=== PATIENT | female | born 1935 | race Caucasian/White ===

== ENCOUNTER → 2018-10-29 | Outpatient (CLI) | payer MEDICARE, BC ==
[~2018-10-29] MED LIST: ALEN10 PO; ENAL20 PO; HYDCHL25 PO; OMEP20ER PO; PRAV40 PO
== END | disposition home or self-care (01) ==
LOC: PLD 14:30 → LAB SHORT 14:30
DX: D48.5 Neoplasm of uncertain behavior of skin (principal)
CPT/HCPCS: 88305

== ENCOUNTER → 2021-04-20 | Outpatient (CLI) | payer MEDICARE, BC ==
[2021-04-20 12:59] LABS: Appearance, Urine Hazy (Clear); Bilirubin, Urine Neg (Neg); Blood, Urine Neg (Neg); Color, Urine Yellow (P-Yellow); Glucose Qualitative, Urine Neg (Neg); Ketones, Urine Neg (Neg); Leukocyte Esterase, Urine 3+ (Neg); Nitrite, Urine Neg (Neg); Protein, Urine Neg (Neg); Urobilinogen, Urine NORM (Normal)
[2021-04-20 13:08] LABS: Bacteria Many /hpf; Squamous Epithelial Cells Mod /hpf (Few); White Blood Cells, Urine 50-100 /hpf (0-5)
[2021-04-20 13:09] LABS: Renal Epithelial Few /hpf (0-Rare)
== END | disposition home or self-care (01) ==
LOC: LAB 08:00 → LAB SHORT 08:00 → EDSTATUS 04-19 06:45 → LAB FUT 04-19 06:45
PROVIDERS: Nurse Practitioner Women's Health
DX: N39.0 Urinary tract infection, site not specified (principal); Z87.440 Personal history of urinary (tract) infections
CPT/HCPCS: 81001; 87077; 87086; 87186

== ENCOUNTER 2023-04-19 10:22 | Day surgery (SDC) | payer MEDICARE, BC ==
[~2023-04-19] VITALS: Ht 154.9 cm; Wt 68.2 kg
[~2023-04-19 10:22] MED LIST changes: +ESTRADIOL42.5 GM; +Enalapril Malea20 MG; +METOPROLOL SUCC25 MG; +ZOLP5 PO
[2023-04-19] MEDS ORDERED: Calcium Carbon500 MG PO (11:04)
--- NOTE | 2023-04-19 11:06 | NUR ---
04/19/23 1106 Ana M Lee AT 1102 PLEDGET AT 1103
[2023-04-19 12:16] VITALS: BP 192/83
--- NOTE | 2023-04-19 14:59 | NUR ---
04/19/23 1453 ROBERTO FORD PT BP ELEVATED IN PREOP WELL POST OP. PT VERY ANXIOUS. PT STATED THAT SHE WILL TAKE HER BP AT HOME TO CHECK IT. RN INSTRUCTED PT TO CONTACT PCP IF BP IS ELEVATED. PT TOOK HER METOPROLOL THIS AM
== END 2023-04-19 12:40 | disposition home or self-care (01) ==
LOC: ORSCSDS 10:22
PROVIDERS: Ophthalmology
PROC: 08RJ3JZ Replacement of Right Lens with Synthetic Substitute, Percutaneous Approach (ICD-10-PCS; principal; 2023-04-19 12:00)
DX: H25.13 Age-related nuclear cataract, bilateral (principal); H52.201 Unspecified astigmatism, right eye; I10 Essential (primary) hypertension; K21.9 Gastro-esophageal reflux disease without esophagitis; Z79.899 Other long term (current) drug therapy
CPT/HCPCS: J2250; J3010; J3301; J7040; V2632

== ENCOUNTER 2023-04-26 12:35 | Day surgery (SDC) | payer MEDICARE, BC ==
[~2023-04-26] VITALS: Ht 154.9 cm; Wt 67.8 kg
[~2023-04-26 12:35] MED LIST changes: +Calcium Carbon500 MG PO
--- NOTE | 2023-04-26 13:08 | NUR ---
04/26/23 1308 Mayra Wayne TETRACAINE TO LEFT EYE AT 1306 PLEDGET TO LEFT EYE AT 1308 BY [email or web address]
--- NOTE | 2023-04-26 14:17 | NUR ---
04/26/23 1417 Peg Coronado MOXI
[2023-04-26 14:37] VITALS: BP 194/91
== END 2023-04-26 14:58 | disposition home or self-care (01) ==
LOC: ORSCSDS 12:35
PROVIDERS: Ophthalmology
PROC: 08RK3JZ Replacement of Left Lens with Synthetic Substitute, Percutaneous Approach (ICD-10-PCS; principal; 2023-04-26 14:00)
DX: H25.12 Age-related nuclear cataract, left eye (principal); H52.202 Unspecified astigmatism, left eye; Z96.1 Presence of intraocular lens; I12.9 Hypertensive chronic kidney disease with stage 1 through stage 4 chronic kidney disease, or unspecified chronic kidney disease; N18.9 Chronic kidney disease, unspecified; K21.9 Gastro-esophageal reflux disease without esophagitis; Z79.899 Other long term (current) drug therapy
CPT/HCPCS: J2250; J3301; J7040; V2632

== ENCOUNTER → 2024-10-13 | Outpatient (CLI) | payer MEDICARE, BC ==
[2024-10-13 13:46] LABS: C DIFFICILE DNA NEGATIVE (Negative)
== END | disposition home or self-care (01) ==
LOC: LAB 09:00 → LAB SHORT 09:00
PROVIDERS: Legal Medicine
DX: R19.4 Change in bowel habit (principal)
CPT/HCPCS: 87015; 87045; 87046; 87205; 87493; 87899

== ENCOUNTER → 2024-10-16 | Outpatient (CLI) | payer MEDICARE, BC ==
[2024-10-24 11:51] LABS: OVA AND PARASITE,FECAL INTERP Negative (Negative)
== END | disposition home or self-care (01) ==
LOC: LAB 09:03 → LAB SHORT 09:03
PROVIDERS: Legal Medicine
DX: R19.4 Change in bowel habit (principal)
CPT/HCPCS: 87177; 87209

== ENCOUNTER 2025-05-28 12:29 | Inpatient (IN) | payer MEDICARE, BC ==
[~2025-05-28] VITALS: Ht 162.6 cm; Wt 74.8 kg
[~2025-05-28 12:29] MED LIST changes: -METOPROLOL SUCC25 MG; +METOPROLOL SUCC25 MG PO
[2025-05-28 13:53] LABS: BASOPHILS ABSOLUTE AUTO 0.05 K/mm3 (0.00-0.23); BASOPHILS PERCENT AUTO 1 % (0-2); EOSINOPHILS ABSOLUTE AUTO 0.14 K/mm3 (0.00-0.68); EOSINOPHILS PERCENT AUTO 2 % (0-6); Hematocrit 40.5 % (33.0-51.0); Hemoglobin 13.3 g/dL (11.5-16.0); IMMATURE GRAN ABSOLUTE AUTO 0.01 K/mm3 (0.00-0.10); IMMATURE GRAN PERCENT AUTO 0 % (0-1); LYMPHOCYTES ABSOLUTE AUTO 1.92 K/mm3 (0.84-5.20); LYMPHOCYTES PERCENT AUTO 30 % (21-46); MONOCYTES ABSOLUTE AUTO 0.61 K/mm3 (0.16-1.47); MONOCYTES PERCENT AUTO 10 % (4-13); Mean Corpuscular HGB Conc 32.8 g/dL (31.5-36.5); Mean Corpuscular Volume 90 fL (80-100); NEUTROPHILS ABSOLUTE AUTO 3.64 K/mm3 (1.96-9.15); NEUTROPHILS PERCENT AUTO 57 % (41-73); NRBC ABSOLUTE 0.00 K/mm3 (0.00-0.02); NRBC Auto 0.0 /100 WBC (0.0-0.2); Platelet Count 241 K/mm3 (150-400); RDW Coefficient Variation 14.2 % (11.7-14.2); RDW Standard Deviation 46.6 fL (35.1-46.3)
[2025-05-28 14:03] LABS: Source, Urine Clean Catch
[2025-05-28 14:04] LABS: Alanine Aminotransfer (ALT/SGP 21.0 U/L (12-78); Albumin, Blood 3.8 g/dL (3.4-5.0); Albumin/Globulin Ratio 0.9 (0.8-1.8); Anion Gap 9.0 mmol/L (3-11); Aspartate Aminotrans (AST/SGOT 25.0 U/L (12-37); Bilirubin, Total 0.5 mg/dL (0.1-1.0); Blood Urea Nitrogen 26.0 mg/dL (8-24); CO2, Blood 25.0 mmol/L (21-32); Calcium, Blood 10.7 mg/dL (8.5-10.1); Chloride, Blood 107.0 mmol/L (98-108); Creatinine, Blood 1.05 mg/dL (0.40-1.00); Globulin, Blood 4.1 g/dL (2.2-4.0); Glucose, Blood 105.0 mg/dL (70-99); Potassium, Blood 4.3 mmol/L (3.5-5.5); Sodium, Blood 137.0 mmol/L (136-145); Total Protein, Blood 7.9 g/dL (6.4-8.2)
[2025-05-28 14:27] LABS: Bilirubin, Urine Neg (Neg); Color, Urine Yellow (P-Yellow); Glucose Qualitative, Urine Neg (Neg); Ketones, Urine Neg (Neg); Leukocyte Esterase, Urine Neg (Neg); Protein, Urine 1+ (Neg); Specific Gravity, Urine 1.010 (1.003-1.022); Urobilinogen, Urine NORM (Normal)
[2025-05-28 14:43] LABS: Red Blood Cells, Urine 0-2 /hpf (0-2); White Blood Cells, Urine 0-2 /hpf (0-5)
[2025-05-28] MEDS ORDERED: FLU VACC TS2025(65UP)/MF59C/PF 45 MCG/0.5 ML SYRINGE IM SCH (17:50)
[2025-05-28] MEDS ORDERED: Ondansetron HCl 2 MG / ML 2ML Vial IV PRN (17:50)
[2025-05-28] MEDS ORDERED: Labetalol HCL 5 MG/ML 4ML Injection (Single Dose) IV PRN (17:50)
[2025-05-28] MEDS ORDERED: NS 1,000 ML IV SCH (18:00)
[2025-05-28 18:47] VITALS: BP 206/83
[2025-05-28 23:39] VITALS: BP 219/60
[2025-05-28 23:45] VITALS: BP 220/75
--- NOTE | 2025-05-29 00:03 | NUR ---
CALL PLACED TO PROVIDER REGARDING BP, PULSE AND PT FEELING DIZZY. STATED HE WILL REVIEW CHART AND PUT IN ORDERS NEEDED.
[2025-05-29] MEDS ORDERED: HydrALAZINE HCl 20 MG / ML 1ML Vial IV PRN (00:15)
[2025-05-29] MEDS ORDERED: Labetalol HCL 5 MG/ML 4ML Injection (Single Dose) IV PRN (00:15)
[2025-05-29 00:40] VITALS: BP 212/74
[2025-05-29 01:30] VITALS: BP 178/65
--- NOTE | 2025-05-29 03:13 | NUR ---
SHIFT SUMMARY: PT TO HAVE AN MRI IN THE MORNING. PT IS HAVING SLIGHTLY SLURRED SPEECH THAT WAX AND WANES. DAUGHTER AT BEDSIDE. PT HAS A BAG IF FLUID RUNNING AT 125 MLS AND HR. PT IS NPO FOR SWALLOWING PRECAUTIONS AND DUE TO HAVING A HARD TIME SWALLOWING PILLS IN THE ED. TELLY IN PLACE AND PT IS SINUS RADHA. PT IS ON A PUREWIC DUE TO BEING VERY DIZZY WHEN GETTING UP OUT OF BED.
[2025-05-29 04:43] LABS: Hematocrit 36.5 % (33.0-51.0); Hemoglobin 12.2 g/dL (11.5-16.0); Mean Corpuscular HGB Conc 33.4 g/dL (31.5-36.5); Mean Corpuscular Volume 87 fL (80-100); NRBC ABSOLUTE 0.00 K/mm3 (0.00-0.02); NRBC Auto 0.0 /100 WBC (0.0-0.2); Platelet Count 233 K/mm3 (150-400); RDW Coefficient Variation 13.9 % (11.7-14.2); RDW Standard Deviation 44.3 fL (35.1-46.3)
[2025-05-29 05:04] VITALS: BP 148/59
[2025-05-29 05:14] LABS: Anion Gap 11.0 mmol/L (3-11); Blood Urea Nitrogen 20.0 mg/dL (8-24); CO2, Blood 21.0 mmol/L (21-32); Calcium, Blood 9.4 mg/dL (8.5-10.1); Chloride, Blood 108.0 mmol/L (98-108); Creatinine, Blood 0.84 mg/dL (0.40-1.00); Glucose, Blood 107.0 mg/dL (70-99); Potassium, Blood 3.2 mmol/L (3.5-5.5); Sodium, Blood 137.0 mmol/L (136-145)
[2025-05-29 07:04] VITALS: BP 137/73
--- NOTE | 2025-05-29 08:18 | NUR ---
PALLIATIVE CARE NOTE: CONSULT RECIEVED FOR AD/POLST. NO POLST FOUND ON FILE OR THROUGH [facility]. REVIEWED MEDICAL RECORD. PT IS CONFUSED AT THIS TIME AND UNABLE TO MAKE DECISIONS. PT IS FULL CODE. WILL PLACE POLST OUTSIDE ROOM FOR MD TO COMPLETE.
[2025-05-29] MEDS ORDERED: Enoxaparin 40 MG/0.4 ML SYR SC SCH (09:00)
--- NOTE | 2025-05-29 09:32 | NUR ---
DISCUSSED CASE WITH CARE COORDINATION. 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 SHE IS STABLE AT THIS TIME. SHE IS PENDING A SWALLOW EVALUATION. PER CC NO NEEDS FROM PC AT THIS TIME, WILL REMAIN AVALIABLE IF NEED ARISES.
--- NOTE | 2025-05-29 12:04 | NUR ---
PALLIATIVE CARE VISIT: CONSULT RECEIVED FOR AD/POLST. REVIEWED MEDICAL RECORD. NO AD/POLST ON FILE. PO POLST WITH [facility]. MET WITH PT IN HER ROOM. SEVERAL FAMILY MEMBERS PRESENT INCLUDING SPOUSE AND DAUGHTER SUHA. PT IS AWAKE, ANSWERS QUESTIONS APPROPRIATELY BUT DOES ALSO HAVE APHASIA. SHE IS AGREEABLE TO DISCUSSION WITH FAMILY MEMBERS PRESENT. EDUCATED PT AND FAMILY ON CODE STATUS AND POLST, DNR VS CPR MEASURES. ALSO EDUCATED ON ADVANCE DIRECTIVE. THEY ARE INTERESTED IN COMPLETING ONE BUT WANT TIME TO DISCUSS A FAMILY. PROVIDED COPIES AND GAVE CONTACT INFORMATION AND INFORMED THEM IF THEY HAVE QUESTIONS OR NEED ASSISTANCE IN COMPLETING THEY CAN CONTACT ME.
--- NOTE | 2025-05-29 12:50 | NUR ---
ASSUMED CARE OF PT. A/O VSS PT IS WELL AWARE OF ON GOING NURO ISSUES WITH POSSIBLE STROKE. AWAITING MRI THIS MORNING. PT/ OT WORKED WITH PT TODAY WELL AND RECOMMEND SNF, FAMILY CLAIM THAT THEY HAVE HELP AT HOME. SPEECH EVAL IN PROGRESS, PT ABLE TO SWALLOW AND ORDERS FOR SUPERVISED FEEDING EXPLAINED TO PT AND FAMILY. FAMILY STATES UNDERSTANDING
[2025-05-29 16:16] VITALS: BP 153/64
[2025-05-29 19:23] VITALS: BP 187/80
--- NOTE | 2025-05-29 19:25 | NUR ---
up with walker pt is impulsive and has attempted to get oob by her self serveral times, family is aware and will call if needing assistence. pt has been told many times to call if needing to get out of bed but insists that she can do it on her own but will call. bed alarm has been placed for pt safety. pt possible discharge tomorrow, pt dfamily has help and room set up for pt. bed to be delivered tomorrow.
[2025-05-30 00:15] VITALS: BP 189/64
[2025-05-30 04:24] VITALS: BP 155/72
--- NOTE | 2025-05-30 04:31 | NUR ---
SHIFT SUMMARY; PATIENT SLEPT IN LONG INTERVALS, HER DAUGHTER SLEPT OVER. PATIENT C/O HEARTBURN, GAVE HER ZOFRAN WHILE WAITING TO TALK WITH HOSPITALIST. IT SEEMED TO HELP. PATIENT REQUESTED PUREWICK WHILE SHE WAS SLEEPING. TELE SB 51 WITH 1ST DEGREE HB. HYPERTENSIVE, BUT NOT TO THE PARAMETERS TO HAVE PRN MEDS.
[2025-05-30 05:16] LABS: Anion Gap 8.0 mmol/L (3-11); Blood Urea Nitrogen 18.0 mg/dL (8-24); CO2, Blood 23.0 mmol/L (21-32); Calcium, Blood 9.1 mg/dL (8.5-10.1); Chloride, Blood 111.0 mmol/L (98-108); Creatinine, Blood 0.97 mg/dL (0.40-1.00); Glucose, Blood 90.0 mg/dL (70-99); Potassium, Blood 3.8 mmol/L (3.5-5.5); Sodium, Blood 138.0 mmol/L (136-145)
[2025-05-30 07:17] VITALS: BP 177/57
[2025-05-30] MEDS ORDERED: ATOR80 PO (11:25)
[2025-05-30] MEDS ORDERED: ASPI81CH PO (11:25)
[2025-05-30] MEDS ORDERED: CLOP75 PO (11:27)
--- NOTE | 2025-05-30 13:13 | NUR ---
PALLIATIVE CARE VISIT: MET WITH FAMILY AT 1200. THEY WANT TO COMPLETE AD AT HOME. WILL FOLLOW-UP WITH POLST WITH PCP. PROVIDED SPOUSE WITH [employer]BILE [employer] CONTACTS. MET WITH PT IN HER ROOM. SHE IS UP IN CHAIR, DRESSED AND AWAITING DISCHARGE PAPERWORK. PT DENIES CONCERNS OR QUESTIONS AT THIS TIME. SYMPTOMS ARE MANAGED. PT GOING HOME WITH HH.
== END 2025-05-30 12:45 | disposition home health service (06) | DRG 66 ==
LOC: ER 12:29 → MEDS 17:46 → ENPENDDIS 05-30 10:37 → MEDS 05-30 12:45
PROVIDERS: Emergency Medicine; Internal Medicine; Nurse Practitioner Acute Care; ADMIT Student in an Organized Health Care Education/Training Program
DX: I63.89 Other cerebral infarction (principal); R47.1 Dysarthria and anarthria; E78.5 Hyperlipidemia, unspecified; I12.9 Hypertensive chronic kidney disease with stage 1 through stage 4 chronic kidney disease, or unspecified chronic kidney disease; R29.713 NIHSS score 13; N18.30 Chronic kidney disease, stage 3 unspecified; E83.52 Hypercalcemia; E87.6 Hypokalemia; Z88.1 Allergy status to other antibiotic agents; Z88.8 Allergy status to other drugs, medicaments and biological substances; Z79.899 Other long term (current) drug therapy; Z87.19 Personal history of other diseases of the digestive system; Z23 Encounter for immunization
CPT/HCPCS: 36415; 70450; 70496; 70498; 70551; 80048; 80053; 81001; 82330; 82947; 83036; 85025; 85027; 87086; 92526; 92610; 93005; 93010; 93306; 97112; 97161; 97166; 97530; 97535; 99285-25; A9270; J0360; J1650; J2405; J3480; J7030; J7050; Q9967